=== PATIENT | female | born 1975 | race Caucasian/White ===

== ENCOUNTER → 2016-09-19 | Outpatient (CLI) | payer BC ==
[~2016-09-19] MED LIST: MTRUNK PO
== END | disposition home or self-care (01) ==
LOC: C.PAPS 08:21
PROVIDERS: ATTEND Physician Assistant
DX: Z01.419 Encounter for gynecological examination (general) (routine) without abnormal findings (principal)

== ENCOUNTER → 2017-02-07 | Outpatient (CLI) | payer BC ==
--- NOTE | 2017-02-11 15:28 | MAMMOGRAPHY REPORT ---
BILATERAL DIGITAL SCREENING MAMMOGRAM TOMOSYNTHESIS WITH CAD: 02/07/2017 CLINICAL HISTORY: Routine screening. Patient has no complaints. TECHNIQUE: Breast tomosynthesis in addition to standard 2D mammography was performed. Current study was also evaluated with a Computer Aided Detection (CAD) system. COMPARISON: Comparison is made to exam dated: 03/24/2009 ultrasound - [facility]. BREAST COMPOSITION: The tissue of both breasts is heterogeneously dense, which may obscure small mas ses. FINDINGS: There is a small partially visualized nodular asymmetry within the left superior posterior breast on the MLO view, which may represent normal overlapping fibroglandular tissue although spot c ompression tomosynthesis views and possible breast ultrasound are recommended for further evaluation. The remainder of both breasts demonstrate no suspicious masses, calcifications, or areas of oracle application architect ural distortion. IMPRESSION: ACR BI-RADS CATEGORY 0: INCOMPLETE EVALUATION: NEED ADDITIONAL IMAGING EVALUATION Left breast asymmetry, for which additional imaging evaluation is recommended. The patient will be c alled to schedule an appointment. Approximately 10% of breast cancers are not detected with mammography. A negative mammographic report should not delay biopsy if a clinically suggestive mass is present. Nany Britt M.D. ah/:02/07/2017 17:30:56 Internship Coordinator: Kimmy DINERO(Chad)(Kari)(BD), [facility] letter sent: Addl Imaging 0 BI-RADS Code: ACR BI-RADS Category 0: Incomplete Evaluation: Need Additional Imaging Evaluation
== END | disposition home or self-care (01) ==
LOC: C.MAMM 14:42
PROVIDERS: ATTEND Family Medicine
DX: Z12.31 Encounter for screening mammogram for malignant neoplasm of breast (principal); N64.89 Other specified disorders of breast

== ENCOUNTER → 2017-02-19 | Outpatient (CLI) | payer OTHER ==
--- NOTE | 2017-02-19 15:00 | MAMMOGRAPHY REPORT ---
UNILATERAL LEFT DIGITAL DIAGNOSTIC MAMMOGRAM TOMOSYNTHESIS AND TARGETED LEFT ULTRASOUND: 02/19/2017 CLINICAL HISTORY: 41-year-old woman called back from screening mammography for a small nodular asymme try in the posterior left breast on the MLO view. TECHNIQUE: Left MLO tomosynthesis, spot compression CC tomosynthesis and spot compression MLO 2-D an d tomosynthesis images were obtained. COMPARISON: Comparison is made to exams dated: 02/07/2017 mammogram, 03/24/2009 ultrasound, 03/24/2009 c [facility], 10/04/2008, 05/03/2008, and 05/03/2008. BREAST COMPOSITION: The tissue of the left breast is extremely dense, which lowers the sensitivity o f mammography. FINDINGS: The small nodular asymmetry in the posterior left breast along the posterior nipple line on the MLO view is less conspicuous on the repeat tomosynthesis MLO view including more posterior tissu e, it is also less conspicuous on the spot compression left MLO view. No obvious focal area of disto rtion, mass or suspicious calcifications are identified in the visualized left breast. Targeted ultrasound was performed in the left breast 8:00 through 10:00, retroareolar and 2:00 throug h 4:00 axes. A tiny hypoechoic nodular area is seen in the 3:00 periareolar left breast that could r epresent a complicated cyst, benign solid mass or simply normal breast tissue. It measures 1.8 x 1.7 x 1.8 mm. It is doubtful this correlates with the effacing mammographic asymmetry. No other discre te solid or cystic mass is seen. IMPRESSION: ACR-BI-RADS CATEGORY 3: PROBABLY BENIGN, TARGETED ULTRASOUND ACR-BI-RADS CATEGORY 3: PRO BABLY BENIGN 1. A tiny 1.8 mm hypoechoic nodular lesion is identified in the 3:00 periareolar left breast, that i s thought to be incidentally identified on ultrasound, given that the nodular mammographic asymmetry effaced with additional 2-D and tomosynthesis mammographic views. Nevertheless given that it does no t meet the criteria for a simple cyst, a short interval follow-up targeted left breast ultrasound in the 3:00 axis is recommended to ensure stability in 3 months. 2. The initial nodular asymmetry in the posterior left breast on the MLO view effaces with additiona l mammographic views and most likely represented normal overlapping fibroglandular tissue. This can also be reassessed at follow-up. These results and recommendations were discussed with the patient at the time of the exam. She tenta tively scheduled a 3 month follow-up left breast ultrasound prior to leaving our department. Approximately 10% of breast cancers are not detected with mammography. A negative mammographic report should not delay biopsy if a clinically suggestive mass is present. Cheri Wood M.D. ay/:02/19/2017 11:50:59 Power Lineworker: Hiral Bonner, [facility] letter sent: Follow Up Recommended 3 BI-RADS Code: ACR-BI-RADS Category 3: Probably Benign Ultrasound BI-RADS: ACR-BI-RADS Category 3: Pr obably Benign
== END | disposition home or self-care (01) ==
LOC: C.MAMM 08:55
PROVIDERS: ATTEND Family Medicine
DX: N64.9 Disorder of breast, unspecified (principal); N63.20 Unspecified lump in the left breast, unspecified quadrant

== ENCOUNTER → 2017-05-22 | Outpatient (CLI) | payer OTHER ==
--- NOTE | 2017-05-22 14:43 | MAMMOGRAPHY REPORT ---
ULTRASOUND OF LEFT BREAST: 05/22/2017 CLINICAL HISTORY: Short interval follow-up of left breast lesion. The patient also reports an area o f intermittent pain in her right lateral breast and a possible right breast lump. COMPARISON: Comparison is made to exams dated: 02/19/2017 mammogram, 02/07/2017 mammogram, 03/24/2009 ul trasound, and 03/24/2009 [facility]. TECHNIQUE: Real-time targeted ultrasound of the left breast was performed. FINDINGS: Mammograms were going to be obtained of the left breast to reevaluate the left breast asymm etry as well as the right breast given that the patient has new right breast complaints, however, the patient declined mammography and only wanted ultrasound. Real-time, high-resolution targeted ultras ound was performed of the area of the previously seen nodular hypoechoic lesion in the left 3:00 ester areolar breast. In the left 3:00 periareolar breast, there is a subtle hypoechoic mass with non-circ umscribed margins which measures 3 x 3 x 4 mm. The mass is possibly slightly increased compared to t he February 2017 exam although there are some differences in measurement technique. The mass previous ly measured 2 x 2 x 2 mm. Given that the margins are not circumscribed, it is indeterminate and ultr asound-guided core needle biopsy is recommended for further evaluation. Targeted ultrasound was performed of the area of the lump pointed out by the patient in the right 1:0 0 subareolar breast. No suspicious masses or other suspicious sonographic abnormalities are evident at this site. Slightly further from the nipple in the right 1:00 periareolar breast, there are 3 adj acent oval anechoic benign simple cysts, one measuring 4 x 7 mm, one measuring 3 x 4 mm, and the othe r measuring 4 mm. Ultrasound was also performed of the right lateral breast in the region of pain po inted out by the patient. Sonographically normal tissue is seen, without evidence of a mass or other suspicious sonographic abnormality. IMPRESSION: ACR BI-RADS CATEGORY 4: SUSPICIOUS - FOLLOW-UP RECOMMENDED 1. Non-circumscribed 4 mm hypoechoic mass in the left 3:00 periareolar breast, possibly slightly inc reased compared to the February 2017 exam. The mass is indeterminate and ultrasound-guided core needl e biopsy is recommended for further evaluation. 2. No suspicious sonographic abnormalities at the site of intermittent right lateral breast pain and palpable right breast lump pointed out by the patient. Recommend clinical follow-up. A phone call was made to the physician's office to confirm faxed results were received. The patient was verbally notified of the results. She tentatively scheduled the biopsy before leaving the depart ment. Nany Britt M.D. ah/:05/22/2017 10:20:50 Sign Language Interpreter: Nany Britt MD, [facility] letter sent: Abnormal 4/5 BI-RADS Code: ACR BI-RADS Category 4: Suspicious
== END | disposition home or self-care (01) ==
LOC: C.MAMM 09:46
PROVIDERS: ATTEND Family Medicine
DX: N63.21 Unspecified lump in the left breast, upper outer quadrant (principal); N64.4 Mastodynia; N63.10 Unspecified lump in the right breast, unspecified quadrant

== ENCOUNTER → 2017-05-27 | Outpatient (CLI) | payer OTHER ==
--- NOTE | 2017-05-27 13:15 | Discharge Instructions ---
Discharge Instructions Procedure Procedure Date: May 27, 2017. Reason for visit: Left Mass. Discharge Discharge Date: May 27, 2017. Discharge Diagnosis: post left breast ultrasound guided core biopsy Instructions Activity Recommendations: Additional Limitations (see below) Return to School/Work: no limitations Recommended Home Diet: No Limitations Provider Instructions: ACTIVITY RECOMMENDATIONS: * No lifting, pushing, pulling or exercising the affected side for three days. RETURN TO SCHOOL/WORK: * You may return to work/school after the procedure, but do not perform any strenuous activities for 24 to 48 hours. MEDICATIONS: * Tylenol (two 325 mg) every four to six hours if needed for mild pain (if not allergic to Tylenol). DIET: * Resume previous diet. SPECIAL CARE INSTRUCTIONS: * Keep biopsy site dry for 24 hours. May shower after 24 hours, but do not soak (bathe) incision. * May remove Tegaderm (plastic patch) tomorrow AFTER showering. * Leave the steri-strips on for one week. Allow the steri-strips to fall off by themselves. If not off after one week, you may remove them. You may place a Bandaid crosswise over the strips, if desired. * Apply ice 10 minutes on and 10 minutes off as needed. * Wear a bra at bedtime to sleep more comfortably for 2-3 days. * Your referring physician should have the results after approximately 5 to 7 business days. * Call for unusual bleeding, fever, drainage, etc or if you have any questions call [phone] during normal business hours or after hours call Dr Wood, . FOLLOW UP VISIT: Follow-up with Referring Physician as scheduled. Allergies Coded Allergies: No Known Allergies (Verified , 11/15/13) Maritza Natarajan Recommendations: Call your doctor if: * Temperature above 101 degrees * Pain not relieved by pain medicine ordered * There is increased drainage or redness from any incision * You have any unanswered questions or concerns. Your Doctors Instructions noted above were prepared by provider Cheri Wood. Patient Signature Section: Patient Instructions Signature Page Holly Fitzpatrick Patient (or Guardian) Signature/Date: I have read and understand the instructions given to me by my caregivers. Caregiver/RN/Doctor Signature/Date: The above-named patient and/or guardian has received patient instructions on this date. + Original Patient Signature Page (only) stays with chart. Please make copy for patient.
--- NOTE | 2017-05-27 15:26 | MAMMOGRAPHY REPORT ---
UNILATERAL LEFT DIGITAL DIAGNOSTIC MAMMOGRAM TOMOSYNTHESIS: 05/27/2017 CLINICAL HISTORY: Status post ultrasound-guided core biopsy of a small 4 mm hypoechoic mass in the 3: 00 periareolar left breast. Please refer to the report from left breast ultrasound-guided core biopsy performed at the same time for full detail. IMPRESSION: POST PROCEDURE IMAGING FOR MARKER PLACEMENT Please refer to the report from left breast ultrasound-guided core biopsy performed at the same time for full detail. Approximately 10% of breast cancers are not detected with mammography. A negative mammographic report should not delay biopsy if a clinically suggestive mass is present. Cheri Wood M.D. ay/:05/27/2017 13:16:19 Beaver Trapper: Hiral Bonner, [facility] BI-RADS Code: Post Procedure Imaging For Marker Placement
--- NOTE | 2017-05-27 15:26 | MAMMOGRAPHY REPORT ---
ULTRASOUND GUIDED BIOPSY LEFT BREAST: 05/27/2017 CLINICAL HISTORY: Patient presents for ultrasound-guided biopsy of a small, 3 x 4 mm non-circumscribe d hypoechoic mass in the 3:00 periareolar left breast. COMPARISON: Comparison is made to exams dated: 05/22/2017 ultrasound, 02/19/2017 ultrasound, 02/19/2017 ma mmogram, 02/07/2017 mammogram, 03/24/2009 ultrasound - [facility], and 10/04/2008. PATIENT CONSENT: The procedure, risks and benefits were discussed with the patient and informed conse nt was obtained both verbally and in writing. Specific risks to this procedure include: bleeding, in fection, puncture of adjacent structure, nontarget biopsy, sampling error, pain, metal allergy and me dication reaction. PROCEDURE DESCRIPTION: A time out was performed and the left breast was agreed as the site of biopsy. The skin was prepped and draped in the usual sterile fashion. The non-circumscribed 3-4 mm mass in t he 3:00 breast was chosen as the target for biopsy. Subcutaneous and intraparenchymal 1% buffered lid ocaine, with and without epinephrine, was administered as local anesthesia. A skin incision was made. Through the incision, 3 samples were taken with a 14 gauge Achieve biopsy device. The mass was les s conspicuous after each core biopsy sample. A ribbon shaped metallic marker was placed at the biops y site. Hemostasis was achieved after manual compression. The patient tolerated the procedure well an d there was no immediate complication. The samples were sent to the pathology department in an appro priately labeled container. Postprocedure left CC and MLO views were obtained. A new ribbon-shaped biopsy marker clip is identif ied in the 3:00 middle one third of the left breast. Although positioning is slightly different, the biopsy marker clip appears to align with the initial nodular asymmetry in question based on the 01/18 screening mammogram. Therefore, follow-up interval will be determined based on pathology resu lts. No significant postbiopsy hematoma is identified. IMPRESSION: ULTRASOUND GUIDED BIOPSY Status post ultrasound-guided core biopsy of an indeterminate, 3 x 4 mm non-circumscribed mass in the 3:00 periareolar left breast, with biopsy marker clip placed at the site. The patient will receive notification of the biopsy results from her referring physician. Cheri barber/:05/27/2017 13:32:09 Dry Mop Maker: Hiral Bonner, [facility]
== END | disposition home or self-care (01) ==
LOC: C.MAMM 12:39
PROVIDERS: ATTEND Family Medicine
DX: N63.20 Unspecified lump in the left breast, unspecified quadrant (principal); N62 Hypertrophy of breast